=== PATIENT | male | born 1980 | race Two or more races ===

== ENCOUNTER 2023-04-20 13:53 | Inpatient (IN) | payer OTHER ==
[2023-04-20 15:03] VITALS: BMI 48.3
[2023-04-20] MEDS ORDERED: SODIUM CHLORIDE IV ONE (15:39)
[2023-04-20] MEDS ORDERED: VANCOMYCIN 1,000 MG in DEXTROSE 5%-WATER - 250 ML IVPB ONE (15:40)
[2023-04-20] MEDS ORDERED: PIPERACILLIN/TAZOB 4.5 GM 4.5 GM in DEXTROSE 5%-WATER 100 ML IVPB ONE (15:40)
[2023-04-20] MEDS ORDERED: PIPERACILLIN/TAZOB 4.5 GM 4.5 GM/100 ML BAG IVPB ONE (16:10)
[2023-04-20] MEDS ORDERED: VANCOMYCIN 1 GRAM (PRE-DOCKED) 1,000 MG/250 ML BAG IVPB ONE (16:10)
[2023-04-20 16:46] LABS: VENOUS O2 SATURATION 93.3 % (70-80); VENOUS PCO2 37.2 mmHg (38-52); VENOUS PH 7.473 (7.310-7.410)
[2023-04-20 16:48] LABS: BASO % 0.8 % (0-2.0); EOS % 2.3 % (0-4.5); HEMATOCRIT 29.8 % (35.4-49); LYMPH % 19.4 % (8-40); MCH 25.1 pg (25.7-33.7); MCHC 33.6 g/dl (32.0-35.9); MEAN CELL VOLUME 74.7 fl (80-96); MONO % 10.1 % (3.8-10.2); NEUT % 67.4 % (42.8-82.8); PLATELET COUNT 461 10^3/uL (134-434); RDW 16.4 % (11.9-15.9)
[2023-04-20 16:49] LABS: MEAN PLT VOLUME 5.8 fl (7.5-11.1)
[2023-04-20 16:58] LABS: INR 1.14 (0.83-1.09); PROTHROMBIN TIME (PATIENT) 13.2 SEC (9.7-13.0)
[2023-04-20 17:14] LABS: POTASSIUM 4.2 mmol/L (3.5-5.1)
[2023-04-20 17:16] LABS: CALCIUM 8.2 mg/dL (8.5-10.1)
[2023-04-20 17:17] LABS: ALBUMIN 2.2 g/dl (3.4-5.0); BLOOD UREA NITROGEN 9.4 mg/dL (7-18)
[2023-04-20 17:20] LABS: CREATININE 0.9 mg/dL (0.55-1.3)
[2023-04-20 17:21] LABS: TOT PROT 8.9 g/dl (6.4-8.2)
[2023-04-20 17:22] LABS: BILIRUBIN,TOTAL 0.2 mg/dL (0.2-1)
[2023-04-20 19:11] LABS: PH,URINE 6.5 (5.0-8.0); URINE APPEARANCE CLEAR; URINE BILIRUBIN NEGATIVE (NEGATIVE); URINE COLOR YELLOW; URINE GLUCOSE (UA) NEGATIVE (NEGATIVE); URINE KETONE TRACE (NEGATIVE); URINE LEUK ESTERASE NEGATIVE (NEGATIVE); URINE NITRITE NEGATIVE (NEGATIVE); URINE PROTEIN TRACE (NEGATIVE)
[2023-04-20] MEDS ORDERED: ACETAMINOPHEN 325 MG TABLET (FP) ONE (23:02)
[2023-04-20] MEDS: ACETAMINOPHEN 325 MG TABLET (FP) PO PRN (23:07)
[2023-04-20] MEDS ORDERED: chlordiazePOXIDE HCL 25 MG CAPSULE PO PRN (23:24)
[2023-04-21] MEDS ORDERED: chlordiazePOXIDE HCL 25 MG CAPSULE ONE ×2 (00:31→05:44)
[2023-04-21] MEDS: chlordiazePOXIDE HCL 25 MG CAPSULE PO SCH ×4 (00:31→17:02)
[2023-04-21 07:43] LABS: HEMATOCRIT 30.4 % (35.4-49); HEMOGLOBIN 9.6 GM/dL (11.7-16.9); MCH 24.5 pg (25.7-33.7); MCHC 31.7 g/dl (32.0-35.9); MEAN CELL VOLUME 77.3 fl (80-96); PLATELET COUNT 459 10^3/uL (134-434); RBC 3.94 M/mm3 (4.00-5.60); RDW 16.2 % (11.9-15.9); WHITE BLOOD COUNT 7.3 K/mm3 (4.0-10.0)
[2023-04-21 08:00] LABS: POTASSIUM 4.3 mmol/L (3.5-5.1)
[2023-04-21 08:02] LABS: BLOOD UREA NITROGEN 7.5 mg/dL (7-18); CALCIUM 8.1 mg/dL (8.5-10.1)
[2023-04-21 08:03] LABS: ALBUMIN 2.1 g/dl (3.4-5.0)
[2023-04-21 08:05] LABS: BILIRUBIN,DIRECT 0.1 mg/dL (0.0-0.2)
[2023-04-21 08:06] LABS: CREATININE 0.9 mg/dL (0.55-1.3)
[2023-04-21 08:07] LABS: BILIRUBIN,TOTAL 0.5 mg/dL (0.2-1); TOT PROT 8.5 g/dl (6.4-8.2)
[2023-04-21] MEDS ORDERED: ENOXAPARIN NA (PORCINE) 40 MG/0.4 ML DISP.SYRIN SQ SCH (10:00)
[2023-04-21] MEDS: ACETAMINOPHEN 325 MG TABLET (FP) PO PRN (10:45)
[2023-04-21] MEDS: DOXYCYCLINE HYCLATE 100 MG CAPSULE PO SCH ×2 (10:45→17:53)
[2023-04-21] MEDS ORDERED: LORazepam 1 MG TABLET PO PRN (14:11)
[2023-04-21] MEDS ORDERED: SODIUM CHLORIDE 1,000 ML IV SCH (14:15)
[2023-04-21] MEDS: MULTIVITAMINS (DAILY MVI) TABLET (FP) PO SCH (14:57)
[2023-04-21] MEDS: THIAMINE HCL 100 MG TABLET (FP) PO SCH (14:57)
[2023-04-21] MEDS: FOLIC ACID 1 MG TABLET (FP) PO SCH (14:57)
[2023-04-21] MEDS: VANCOMYCIN/WATER FOR INJ (PEG) 1,000 MG/200 ML BAG IVPB SCH (17:02)
[2023-04-21] MEDS: PIPERACILLIN/TAZOB 3.375 GM 3.375 GM in DEXTROSE 5%-WATER - 50 ML IVPB SCH (17:53)
[2023-04-22] MEDS: chlordiazePOXIDE HCL 25 MG CAPSULE PO SCH ×7 (00:04→22:32)
[2023-04-22] MEDS: PIPERACILLIN/TAZOB 3.375 GM 3.375 GM in DEXTROSE 5%-WATER - 50 ML IVPB SCH ×3 (02:01→17:06)
[2023-04-22] MEDS: VANCOMYCIN/WATER FOR INJ (PEG) 1,000 MG/200 ML BAG IVPB SCH ×2 (04:22→15:34)
[2023-04-22] MEDS: FOLIC ACID 1 MG TABLET (FP) PO SCH (10:22)
[2023-04-22] MEDS: THIAMINE HCL 100 MG TABLET (FP) PO SCH (10:22)
[2023-04-22] MEDS: DOXYCYCLINE HYCLATE 100 MG CAPSULE PO SCH ×2 (10:22→17:06)
[2023-04-22] MEDS: MULTIVITAMINS (DAILY MVI) TABLET (FP) PO SCH (10:22)
[2023-04-22] MEDS: PANTOPRAZOLE 40 MG TABLET PO SCH (11:07)
[2023-04-22] MEDS: HEPARIN NA (PORCINE) 5,000 UNITS/ML 1ML VIAL SQ SCH ×2 (13:48→22:32)
[2023-04-23] MEDS ORDERED: chlordiazePOXIDE HCL 10 MG CAPSULE PO PRN
[2023-04-23] MEDS: PIPERACILLIN/TAZOB 3.375 GM 3.375 GM in DEXTROSE 5%-WATER - 50 ML IVPB SCH ×3 (02:48→17:21)
[2023-04-23] MEDS: chlordiazePOXIDE HCL 10 MG CAPSULE PO SCH ×4 (05:00→23:26)
[2023-04-23] MEDS: VANCOMYCIN/WATER FOR INJ (PEG) 1,000 MG/200 ML BAG IVPB SCH ×2 (05:01→16:37)
[2023-04-23] MEDS: HEPARIN NA (PORCINE) 5,000 UNITS/ML 1ML VIAL SQ SCH ×3 (05:07→21:11)
[2023-04-23 08:51] LABS: BASO % 0.9 % (0-2.0); EOS % 4.4 % (0-4.5); HEMATOCRIT 30.5 % (35.4-49); HEMOGLOBIN 9.7 GM/dL (11.7-16.9); LYMPH % 31.5 % (8-40); MCH 24.5 pg (25.7-33.7); MEAN CELL VOLUME 76.7 fl (80-96); MONO % 9.4 % (3.8-10.2); NEUT % 53.8 % (42.8-82.8); PLATELET COUNT 489 10^3/uL (134-434); RBC 3.98 M/mm3 (4.00-5.60); WHITE BLOOD COUNT 6.6 K/mm3 (4.0-10.0)
[2023-04-23 09:03] LABS: POTASSIUM 4.2 mmol/L (3.5-5.1)
[2023-04-23 09:15] LABS: BILIRUBIN,TOTAL 0.3 mg/dL (0.2-1); TOT PROT 8.7 g/dl (6.4-8.2)
[2023-04-23 09:16] LABS: ALBUMIN 2.2 g/dl (3.4-5.0)
[2023-04-23 09:17] LABS: CALCIUM 8.3 mg/dL (8.5-10.1); CREATININE 0.9 mg/dL (0.55-1.3)
[2023-04-23] MEDS: PANTOPRAZOLE 40 MG TABLET PO SCH (10:48)
[2023-04-23] MEDS: FOLIC ACID 1 MG TABLET (FP) PO SCH (10:48)
[2023-04-23] MEDS: MULTIVITAMINS (DAILY MVI) TABLET (FP) PO SCH (10:48)
[2023-04-23] MEDS: DOXYCYCLINE HYCLATE 100 MG CAPSULE PO SCH ×2 (10:49→17:22)
[2023-04-23] MEDS: THIAMINE HCL 100 MG TABLET (FP) PO SCH (10:49)
[2023-04-24] MEDS: PIPERACILLIN/TAZOB 3.375 GM 3.375 GM in DEXTROSE 5%-WATER - 50 ML IVPB SCH ×3 (02:00→17:28)
[2023-04-24] MEDS: VANCOMYCIN/WATER FOR INJ (PEG) 1,000 MG/200 ML BAG IVPB SCH ×2 (04:00→15:32)
[2023-04-24] MEDS: chlordiazePOXIDE HCL 10 MG CAPSULE PO SCH ×2 (05:26→16:25)
[2023-04-24] MEDS: HEPARIN NA (PORCINE) 5,000 UNITS/ML 1ML VIAL SQ SCH ×3 (05:27→22:40)
[2023-04-24] MEDS: DOXYCYCLINE HYCLATE 100 MG CAPSULE PO SCH (09:39)
[2023-04-24] MEDS: FOLIC ACID 1 MG TABLET (FP) PO SCH (09:39)
[2023-04-24] MEDS: PANTOPRAZOLE 40 MG TABLET PO SCH (09:39)
[2023-04-24] MEDS: MULTIVITAMINS (DAILY MVI) TABLET (FP) PO SCH (09:39)
[2023-04-24] MEDS: THIAMINE HCL 100 MG TABLET (FP) PO SCH (09:39)
[2023-04-24 10:27] LABS: BASO % 1.1 % (0-2.0); EOS % 4.3 % (0-4.5); HEMATOCRIT 30.3 % (35.4-49); HEMOGLOBIN 9.7 GM/dL (11.7-16.9); LYMPH % 28.6 % (8-40); MCH 24.5 pg (25.7-33.7); MCHC 31.9 g/dl (32.0-35.9); MEAN CELL VOLUME 76.8 fl (80-96); PLATELET COUNT 453 10^3/uL (134-434); POTASSIUM 3.7 mmol/L (3.5-5.1); RBC 3.95 M/mm3 (4.00-5.60); RDW 16.2 % (11.9-15.9); WHITE BLOOD COUNT 7.2 K/mm3 (4.0-10.0)
[2023-04-24 10:29] LABS: ALBUMIN 2.1 g/dl (3.4-5.0); BLOOD UREA NITROGEN 9.8 mg/dL (7-18)
[2023-04-24 10:30] LABS: CALCIUM 8.6 mg/dL (8.5-10.1)
[2023-04-24 10:34] LABS: BILIRUBIN,TOTAL 0.3 mg/dL (0.2-1); TOT PROT 8.5 g/dl (6.4-8.2)
[2023-04-24] MEDS: ACETAMINOPHEN 325 MG TABLET (FP) PO PRN (15:33)
[2023-04-25] MEDS: PIPERACILLIN/TAZOB 3.375 GM 3.375 GM in DEXTROSE 5%-WATER - 50 ML IVPB SCH ×3 (01:44→17:13)
[2023-04-25] MEDS: VANCOMYCIN/WATER FOR INJ (PEG) 1,000 MG/200 ML BAG IVPB SCH ×2 (04:09→17:12)
[2023-04-25] MEDS: chlordiazePOXIDE HCL 10 MG CAPSULE PO ONE ×2 (05:46→05:49)
[2023-04-25] MEDS: ACETAMINOPHEN 325 MG TABLET (FP) PO PRN (06:03)
[2023-04-25] MEDS: HEPARIN NA (PORCINE) 5,000 UNITS/ML 1ML VIAL SQ SCH ×3 (06:56→21:20)
[2023-04-25] MEDS: FOLIC ACID 1 MG TABLET (FP) PO SCH (09:36)
[2023-04-25] MEDS: MULTIVITAMINS (DAILY MVI) TABLET (FP) PO SCH (09:36)
[2023-04-25] MEDS: THIAMINE HCL 100 MG TABLET (FP) PO SCH (09:36)
[2023-04-25] MEDS: PANTOPRAZOLE 40 MG TABLET PO SCH (09:36)
[2023-04-26] MEDS: PIPERACILLIN/TAZOB 3.375 GM 3.375 GM in DEXTROSE 5%-WATER - 50 ML IVPB SCH ×3 (02:13→17:15)
[2023-04-26] MEDS: VANCOMYCIN/WATER FOR INJ (PEG) 1,000 MG/200 ML BAG IVPB SCH ×2 (03:43→15:11)
[2023-04-26] MEDS: HEPARIN NA (PORCINE) 5,000 UNITS/ML 1ML VIAL SQ SCH ×3 (05:53→21:58)
[2023-04-26] MEDS: PANTOPRAZOLE 40 MG TABLET PO SCH (10:38)
[2023-04-26] MEDS: THIAMINE HCL 100 MG TABLET (FP) PO SCH (10:38)
[2023-04-26] MEDS: MULTIVITAMINS (DAILY MVI) TABLET (FP) PO SCH (10:38)
[2023-04-26] MEDS: FOLIC ACID 1 MG TABLET (FP) PO SCH (10:38)
[2023-04-26] MEDS: ALPRAZolam 1 MG TABLET PO PRN (21:58)
[2023-04-27] MEDS: PIPERACILLIN/TAZOB 3.375 GM 3.375 GM in DEXTROSE 5%-WATER - 50 ML IVPB SCH ×2 (02:49→11:11)
[2023-04-27] MEDS: VANCOMYCIN/WATER FOR INJ (PEG) 1,000 MG/200 ML BAG IVPB SCH (03:51)
[2023-04-27] MEDS: HEPARIN NA (PORCINE) 5,000 UNITS/ML 1ML VIAL SQ SCH ×4 (05:42→21:29)
[2023-04-27 10:38] LABS: BASO % 1.1 % (0-2.0); EOS % 3.7 % (0-4.5); HEMATOCRIT 30.6 % (35.4-49); LYMPH % 26.3 % (8-40); MCH 24.9 pg (25.7-33.7); MCHC 32.6 g/dl (32.0-35.9); MEAN CELL VOLUME 76.4 fl (80-96); MONO % 9.3 % (3.8-10.2); NEUT % 59.6 % (42.8-82.8); PLATELET COUNT 465 10^3/uL (134-434); RDW 16.4 % (11.9-15.9); WHITE BLOOD COUNT 6.7 K/mm3 (4.0-10.0)
[2023-04-27 10:40] LABS: MEAN PLT VOLUME 5.8 fl (7.5-11.1)
[2023-04-27 10:57] LABS: POTASSIUM 3.7 mmol/L (3.5-5.1)
[2023-04-27 11:02] LABS: BLOOD UREA NITROGEN 11.3 mg/dL (7-18); CALCIUM 8.6 mg/dL (8.5-10.1)
[2023-04-27 11:03] LABS: ALBUMIN 2.2 g/dl (3.4-5.0)
[2023-04-27 11:04] LABS: CREATININE 0.9 mg/dL (0.55-1.3)
[2023-04-27 11:06] LABS: BILIRUBIN,TOTAL 0.3 mg/dL (0.2-1); TOT PROT 8.6 g/dl (6.4-8.2)
[2023-04-27] MEDS: THIAMINE HCL 100 MG TABLET (FP) PO SCH (11:10)
[2023-04-27] MEDS: FOLIC ACID 1 MG TABLET (FP) PO SCH (11:11)
[2023-04-27] MEDS: MULTIVITAMINS (DAILY MVI) TABLET (FP) PO SCH (11:11)
[2023-04-27] MEDS: PANTOPRAZOLE 40 MG TABLET PO SCH (11:11)
[2023-04-27] MEDS: AMOX TR/POT CLAV 875MG/125MG TABLETS (FP) PO SCH (17:31)
[2023-04-27] MEDS: ALPRAZolam 1 MG TABLET PO PRN (21:20)
[2023-04-28] MEDS: HEPARIN NA (PORCINE) 5,000 UNITS/ML 1ML VIAL SQ SCH ×2 (05:22→14:26)
[2023-04-28] MEDS: MULTIVITAMINS (DAILY MVI) TABLET (FP) PO SCH (10:11)
[2023-04-28] MEDS: FOLIC ACID 1 MG TABLET (FP) PO SCH (10:11)
[2023-04-28] MEDS: THIAMINE HCL 100 MG TABLET (FP) PO SCH (10:11)
[2023-04-28] MEDS: AMOX TR/POT CLAV 875MG/125MG TABLETS (FP) PO SCH (10:11)
[2023-04-28] MEDS: PANTOPRAZOLE 40 MG TABLET PO SCH (10:11)
[2023-04-28 12:47] VITALS: BP 123/61; PULSE 87; RESP 18; TEMP 98.8
== END 2023-04-28 15:03 | disposition other institution (70) | DRG 720 ==
LOC: JER 13:53 → JERBED 19:12 → J7W 04-21 08:16
PROVIDERS: ADMIT Internal Medicine; ATTEND Internal Medicine
DX: A41.9 Sepsis, unspecified organism (principal); L73.2 Hidradenitis suppurativa; F10.10 Alcohol abuse, uncomplicated; L03.112 Cellulitis of left axilla; I10 Essential (primary) hypertension; E78.5 Hyperlipidemia, unspecified; F32.A Depression, unspecified; Z59.00 Homelessness unspecified; E66.01 Morbid (severe) obesity due to excess calories; Z68.42 Body mass index [BMI] 45.0-49.9, adult
CPT/HCPCS: 0241U-QW; 36415; 71045-TC-FY; 71260-TC; 74177-TC; 80048; 80053; 80076; 81003; 82550; 82553; 82803; 83605; 84484; 85025; 85027; 85610; 85651; 85730; 86140; 87040; 87070; 87081; 87086; 87186; 87205; 93005; 93010; 99291; G0480; J1644; Q9967

== ENCOUNTER 2023-04-28 14:57 | Inpatient (IN) | payer OTHER ==
[2023-04-28 15:22] VITALS: BMI 34.2
[2023-04-28] MEDS ORDERED: POLYETHYLENE GLYCOL (HEALTHYLAX) 3350 17 GM PACKET PO PRN (16:01)
[2023-04-28] MEDS ORDERED: NALOXONE HCL 0.4 MG/ML VIAL IM PRN (16:01)
[2023-04-28] MEDS ORDERED: BENZOCAINE/MENTHOL (CHLORASEPTIC ) LOZENGE MM PRN (16:01)
[2023-04-28] MEDS ORDERED: MAGNESIUM HYDROX 2400MG/30ML ORAL SUSPENSION 30 ML CUP PO PRN (16:01)
[2023-04-28] MEDS ORDERED: ACETAMINOPHEN 325 MG TABLET (FP) PO PRN (16:01)
[2023-04-28] MEDS ORDERED: hydrOXYzine PAMOATE 25 MG CAPSULE (FP) PO PRN (16:01)
[2023-04-28] MEDS ORDERED: MAG HYDROX/AL HYDROX/SIMETH 30 ML UNIT-DOSE CUP PO PRN (16:01)
[2023-04-28] MEDS ORDERED: NICOTINE POLACRILEX 2 MG GUM BUC PRN (16:01)
[2023-04-28] MEDS ORDERED: guaiFENesin 600 MG TABLET.ER (FP) PO PRN (16:01)
[2023-04-28] MEDS ORDERED: COLLOIDAL OATMEAL 1 BAR EACH TP PRN (16:01)
[2023-04-28] MEDS ORDERED: LOPERAMIDE HCL 2 MG CAPSULE PO PRN (16:01)
[2023-04-28] MEDS ORDERED: NALOXONE HCL (KLOXXADO) 8 MG SPRAY NS PRN (16:01)
[2023-04-28] MEDS ORDERED: BENZONATATE 200 MG CAPSULE PO PRN (16:01)
[2023-04-28] MEDS: PRENATAL VITAMINS W/ FOLIC ACID TABLET (FP) PO SCH (17:24)
[2023-04-28] MEDS: MELATONIN 5 MG TABLETS PO SCH (21:19)
[2023-04-28] MEDS: THIAMINE HCL 100 MG TABLET (FP) PO SCH (21:19)
[2023-04-29] MEDS: PRENATAL VITAMINS W/ FOLIC ACID TABLET (FP) PO SCH (10:45)
[2023-04-29 11:10] LABS: PH,URINE 5.5 (5.0-8.0); URINE APPEARANCE CLEAR; URINE BILIRUBIN NEGATIVE (NEGATIVE); URINE COLOR YELLOW; URINE GLUCOSE (UA) NEGATIVE (NEGATIVE); URINE KETONE NEGATIVE (NEGATIVE); URINE LEUK ESTERASE NEGATIVE (NEGATIVE); URINE NITRITE NEGATIVE (NEGATIVE); URINE PROTEIN NEGATIVE (NEGATIVE); URINE UROBILINOGEN 0.2 mg/dL (0.2-1.0)
[2023-04-29 11:20] LABS: CHLORIDE 104 mmol/L (98-107); SODIUM 138 mmol/L (136-145)
[2023-04-29 11:41] LABS: ALBUMIN 2.2 g/dl (3.4-5.0); CALCIUM 8.5 mg/dL (8.5-10.1)
[2023-04-29 11:42] LABS: ANION GAP 7 mmol/L (4-13); BLOOD UREA NITROGEN 10.1 mg/dL (7-18); CO2 27 mmol/L (21-32); GLUCOSE,RANDOM 75 mg/dL (74-106)
[2023-04-29 11:43] LABS: HEMATOCRIT 30.7 % (35.4-49); HEMOGLOBIN 9.9 GM/dL (11.7-16.9); MCH 24.7 pg (25.7-33.7); MCHC 32.4 g/dl (32.0-35.9); MEAN CELL VOLUME 76.3 fl (80-96); MEAN PLT VOLUME 6.2 fl (7.5-11.1); PLATELET COUNT 514 10^3/uL (134-434); RBC 4.02 M/mm3 (4.00-5.60); RDW 16.7 % (11.9-15.9)
[2023-04-29 11:45] LABS: SGOT/AST 15 U/L (15-37)
[2023-04-29 11:47] LABS: SGPT/ALT 18 U/L (13-61)
[2023-04-29 11:48] LABS: ALK PHOS 91 U/L (45-117); CREATININE 0.9 mg/dL (0.55-1.3); TOT PROT 8.6 g/dl (6.4-8.2)
[2023-04-29 11:49] LABS: BILIRUBIN,TOTAL 0.3 mg/dL (0.2-1)
[2023-04-29 14:06] LABS: SYPHILIS W/ RPR CONF NON-REACTIVE (NONREACTIVE)
[2023-04-29] MEDS: IBUPROFEN 600 MG TABLET (FP) PO PRN (21:12)
[2023-04-29] MEDS: MELATONIN 5 MG TABLETS PO SCH (21:12)
[2023-04-29] MEDS: THIAMINE HCL 100 MG TABLET (FP) PO SCH (21:12)
[2023-04-30] MEDS: PRENATAL VITAMINS W/ FOLIC ACID TABLET (FP) PO SCH (10:17)
[2023-04-30] MEDS ORDERED: AMOX TR/POTASSIUM CLAVULANATE 125 MG/5 ML BOTTLE 75ML PO SCH (13:45)
[2023-04-30] MEDS: AMOX TR/POT CLAV 500MG/125MG TABLETS (FP) PO SCH ×2 (15:53→21:24)
[2023-04-30] MEDS: IBUPROFEN 600 MG TABLET (FP) PO PRN (21:24)
[2023-04-30] MEDS: THIAMINE HCL 100 MG TABLET (FP) PO SCH (21:24)
[2023-04-30] MEDS: MELATONIN 5 MG TABLETS PO SCH (21:24)
[2023-05-01] MEDS: AMOX TR/POT CLAV 500MG/125MG TABLETS (FP) PO SCH ×3 (06:53→21:36)
[2023-05-01] MEDS: FERROUS SO4 325 MG TABLET (FP) PO SCH (10:58)
[2023-05-01] MEDS: PRENATAL VITAMINS W/ FOLIC ACID TABLET (FP) PO SCH (10:58)
[2023-05-01] MEDS: PANTOPRAZOLE 40 MG TABLET PO SCH (10:58)
[2023-05-01] MEDS: MELATONIN 5 MG TABLETS PO SCH (21:36)
[2023-05-01] MEDS: THIAMINE HCL 100 MG TABLET (FP) PO SCH (21:36)
[2023-05-02] MEDS: AMOX TR/POT CLAV 500MG/125MG TABLETS (FP) PO SCH ×3 (06:15→21:13)
[2023-05-02] MEDS: FERROUS SO4 325 MG TABLET (FP) PO SCH (10:18)
[2023-05-02] MEDS: PRENATAL VITAMINS W/ FOLIC ACID TABLET (FP) PO SCH (10:18)
[2023-05-02] MEDS: PANTOPRAZOLE 40 MG TABLET PO SCH (10:18)
[2023-05-02] MEDS: MELATONIN 5 MG TABLETS PO SCH (21:12)
[2023-05-02] MEDS: THIAMINE HCL 100 MG TABLET (FP) PO SCH (21:12)
[2023-05-03] MEDS: AMOX TR/POT CLAV 500MG/125MG TABLETS (FP) PO SCH ×3 (06:30→21:10)
[2023-05-03] MEDS: FERROUS SO4 325 MG TABLET (FP) PO SCH (10:42)
[2023-05-03] MEDS: PANTOPRAZOLE 40 MG TABLET PO SCH (10:42)
[2023-05-03] MEDS: PRENATAL VITAMINS W/ FOLIC ACID TABLET (FP) PO SCH (10:43)
[2023-05-03] MEDS: MELATONIN 5 MG TABLETS PO SCH (21:10)
[2023-05-03] MEDS: THIAMINE HCL 100 MG TABLET (FP) PO SCH (21:10)
[2023-05-04] MEDS: AMOX TR/POT CLAV 500MG/125MG TABLETS (FP) PO SCH ×3 (06:30→21:45)
[2023-05-04] MEDS: PRENATAL VITAMINS W/ FOLIC ACID TABLET (FP) PO SCH (10:37)
[2023-05-04] MEDS: PANTOPRAZOLE 40 MG TABLET PO SCH (10:37)
[2023-05-04] MEDS: FERROUS SO4 325 MG TABLET (FP) PO SCH (10:37)
[2023-05-04] MEDS: THIAMINE HCL 100 MG TABLET (FP) PO SCH (21:45)
[2023-05-04] MEDS: MELATONIN 5 MG TABLETS PO SCH (21:46)
[2023-05-05] MEDS: AMOX TR/POT CLAV 500MG/125MG TABLETS (FP) PO SCH ×3 (06:30→21:23)
[2023-05-05] MEDS: PRENATAL VITAMINS W/ FOLIC ACID TABLET (FP) PO SCH (10:49)
[2023-05-05] MEDS: FERROUS SO4 325 MG TABLET (FP) PO SCH (10:49)
[2023-05-05] MEDS: PANTOPRAZOLE 40 MG TABLET PO SCH (10:49)
[2023-05-05] MEDS: THIAMINE HCL 100 MG TABLET (FP) PO SCH (21:22)
[2023-05-05] MEDS: MELATONIN 5 MG TABLETS PO SCH (21:22)
[2023-05-06] MEDS: AMOX TR/POT CLAV 500MG/125MG TABLETS (FP) PO SCH ×3 (06:32→21:13)
[2023-05-06] MEDS: PRENATAL VITAMINS W/ FOLIC ACID TABLET (FP) PO SCH (10:49)
[2023-05-06] MEDS: PANTOPRAZOLE 40 MG TABLET PO SCH (10:49)
[2023-05-06] MEDS: FERROUS SO4 325 MG TABLET (FP) PO SCH (10:49)
[2023-05-06] MEDS: MELATONIN 5 MG TABLETS PO SCH (21:13)
[2023-05-06] MEDS: THIAMINE HCL 100 MG TABLET (FP) PO SCH (21:13)
[2023-05-07] MEDS: AMOX TR/POT CLAV 500MG/125MG TABLETS (FP) PO SCH ×4 (06:37→21:09)
[2023-05-07] MEDS: FERROUS SO4 325 MG TABLET (FP) PO SCH (10:18)
[2023-05-07] MEDS: PRENATAL VITAMINS W/ FOLIC ACID TABLET (FP) PO SCH (10:18)
[2023-05-07] MEDS: PANTOPRAZOLE 40 MG TABLET PO SCH (10:18)
[2023-05-07] MEDS: THIAMINE HCL 100 MG TABLET (FP) PO SCH (21:09)
[2023-05-07] MEDS: MELATONIN 5 MG TABLETS PO SCH (21:09)
[2023-05-08] MEDS: PANTOPRAZOLE 40 MG TABLET PO SCH (09:32)
[2023-05-08] MEDS: FERROUS SO4 325 MG TABLET (FP) PO SCH (09:32)
[2023-05-08] MEDS: PRENATAL VITAMINS W/ FOLIC ACID TABLET (FP) PO SCH (09:32)
[2023-05-08] MEDS: THIAMINE HCL 100 MG TABLET (FP) PO SCH (21:30)
[2023-05-08] MEDS: MELATONIN 5 MG TABLETS PO SCH (21:30)
[2023-05-09] MEDS: PANTOPRAZOLE 40 MG TABLET PO SCH (10:17)
[2023-05-09] MEDS: PRENATAL VITAMINS W/ FOLIC ACID TABLET (FP) PO SCH (10:17)
[2023-05-09] MEDS: FERROUS SO4 325 MG TABLET (FP) PO SCH (10:18)
[2023-05-09] MEDS: MELATONIN 5 MG TABLETS PO SCH (21:26)
[2023-05-09] MEDS: THIAMINE HCL 100 MG TABLET (FP) PO SCH (21:26)
[2023-05-10] MEDS: FERROUS SO4 325 MG TABLET (FP) PO SCH (10:03)
[2023-05-10] MEDS: PANTOPRAZOLE 40 MG TABLET PO SCH (10:03)
[2023-05-10] MEDS: PRENATAL VITAMINS W/ FOLIC ACID TABLET (FP) PO SCH (10:03)
[2023-05-10] MEDS: THIAMINE HCL 100 MG TABLET (FP) PO SCH (21:40)
[2023-05-10] MEDS: MELATONIN 5 MG TABLETS PO SCH (21:40)
[2023-05-11] MEDS: PANTOPRAZOLE 40 MG TABLET PO SCH (09:58)
[2023-05-11] MEDS: PRENATAL VITAMINS W/ FOLIC ACID TABLET (FP) PO SCH (09:58)
[2023-05-11] MEDS: FERROUS SO4 325 MG TABLET (FP) PO SCH (09:58)
[2023-05-11] MEDS: MELATONIN 5 MG TABLETS PO SCH (21:06)
[2023-05-11] MEDS: THIAMINE HCL 100 MG TABLET (FP) PO SCH (21:06)
[2023-05-12] MEDS: PRENATAL VITAMINS W/ FOLIC ACID TABLET (FP) PO SCH (09:46)
[2023-05-12] MEDS: FERROUS SO4 325 MG TABLET (FP) PO SCH (09:47)
[2023-05-12] MEDS: PANTOPRAZOLE 40 MG TABLET PO SCH (09:47)
[2023-05-12] MEDS: DOXYCYCLINE HYCLATE 100 MG TABLET PO SCH (18:58)
[2023-05-12] MEDS: MELATONIN 5 MG TABLETS PO SCH (21:34)
[2023-05-12] MEDS: THIAMINE HCL 100 MG TABLET (FP) PO SCH (21:34)
[2023-05-13] MEDS: FERROUS SO4 325 MG TABLET (FP) PO SCH (10:15)
[2023-05-13] MEDS: PRENATAL VITAMINS W/ FOLIC ACID TABLET (FP) PO SCH (10:15)
[2023-05-13] MEDS: DOXYCYCLINE HYCLATE 100 MG TABLET PO SCH ×2 (10:15→17:35)
[2023-05-13] MEDS: PANTOPRAZOLE 40 MG TABLET PO SCH (10:15)
[2023-05-13] MEDS: THIAMINE HCL 100 MG TABLET (FP) PO SCH (21:47)
[2023-05-13] MEDS: MELATONIN 5 MG TABLETS PO SCH (21:47)
[2023-05-13] MEDS: IBUPROFEN 600 MG TABLET (FP) PO PRN (21:48)
[2023-05-14] MEDS: DOXYCYCLINE HYCLATE 100 MG TABLET PO SCH ×2 (09:52→17:26)
[2023-05-14] MEDS: PRENATAL VITAMINS W/ FOLIC ACID TABLET (FP) PO SCH (09:52)
[2023-05-14] MEDS: PANTOPRAZOLE 40 MG TABLET PO SCH (09:52)
[2023-05-14] MEDS: FERROUS SO4 325 MG TABLET (FP) PO SCH (09:52)
[2023-05-14] MEDS: IBUPROFEN 400 MG TABLET (FP) PO PRN (21:31)
[2023-05-14] MEDS: THIAMINE HCL 100 MG TABLET (FP) PO SCH (21:31)
[2023-05-14] MEDS: MELATONIN 5 MG TABLETS PO SCH (21:31)
[2023-05-15] MEDS: DOXYCYCLINE HYCLATE 100 MG TABLET PO SCH ×2 (10:09→17:37)
[2023-05-15] MEDS: PANTOPRAZOLE 40 MG TABLET PO SCH (10:09)
[2023-05-15] MEDS: FERROUS SO4 325 MG TABLET (FP) PO SCH (10:09)
[2023-05-15] MEDS: PRENATAL VITAMINS W/ FOLIC ACID TABLET (FP) PO SCH (10:09)
[2023-05-15] MEDS: THIAMINE HCL 100 MG TABLET (FP) PO SCH (21:34)
[2023-05-15] MEDS: MELATONIN 5 MG TABLETS PO SCH (21:34)
[2023-05-15] MEDS: IBUPROFEN 400 MG TABLET (FP) PO PRN (21:35)
[2023-05-16] MEDS: PRENATAL VITAMINS W/ FOLIC ACID TABLET (FP) PO SCH (10:52)
[2023-05-16] MEDS: FERROUS SO4 325 MG TABLET (FP) PO SCH (10:53)
[2023-05-16] MEDS: PANTOPRAZOLE 40 MG TABLET PO SCH (10:53)
[2023-05-16] MEDS: DOXYCYCLINE HYCLATE 100 MG TABLET PO SCH ×2 (10:54→17:24)
[2023-05-16] MEDS: IBUPROFEN 400 MG TABLET (FP) PO PRN (21:40)
[2023-05-16] MEDS: THIAMINE HCL 100 MG TABLET (FP) PO SCH (21:40)
[2023-05-16] MEDS: MELATONIN 5 MG TABLETS PO SCH (21:40)
[2023-05-17] MEDS: PANTOPRAZOLE 40 MG TABLET PO SCH (10:28)
[2023-05-17] MEDS: PRENATAL VITAMINS W/ FOLIC ACID TABLET (FP) PO SCH (10:28)
[2023-05-17] MEDS: FERROUS SO4 325 MG TABLET (FP) PO SCH (10:29)
[2023-05-17] MEDS: DOXYCYCLINE HYCLATE 100 MG TABLET PO SCH ×2 (10:29→17:11)
[2023-05-17] MEDS: IBUPROFEN 400 MG TABLET (FP) PO PRN (21:23)
[2023-05-17] MEDS: MELATONIN 5 MG TABLETS PO SCH (21:23)
[2023-05-17] MEDS: THIAMINE HCL 100 MG TABLET (FP) PO SCH (21:23)
[2023-05-18] MEDS: PANTOPRAZOLE 40 MG TABLET PO SCH (10:02)
[2023-05-18] MEDS: PRENATAL VITAMINS W/ FOLIC ACID TABLET (FP) PO SCH (10:02)
[2023-05-18] MEDS: DOXYCYCLINE HYCLATE 100 MG TABLET PO SCH ×2 (10:02→17:25)
[2023-05-18] MEDS: FERROUS SO4 325 MG TABLET (FP) PO SCH (10:03)
[2023-05-18] MEDS: THIAMINE HCL 100 MG TABLET (FP) PO SCH (21:44)
[2023-05-18] MEDS: MELATONIN 5 MG TABLETS PO SCH (21:44)
[2023-05-18] MEDS: IBUPROFEN 600 MG TABLET (FP) PO PRN (21:44)
[2023-05-19] MEDS: PRENATAL VITAMINS W/ FOLIC ACID TABLET (FP) PO SCH (10:14)
[2023-05-19] MEDS: PANTOPRAZOLE 40 MG TABLET PO SCH (10:14)
[2023-05-19] MEDS: FERROUS SO4 325 MG TABLET (FP) PO SCH (10:14)
[2023-05-19] MEDS: DOXYCYCLINE HYCLATE 100 MG TABLET PO SCH (10:15)
[2023-05-19] MEDS: IBUPROFEN 600 MG TABLET (FP) PO PRN (21:34)
[2023-05-19] MEDS: THIAMINE HCL 100 MG TABLET (FP) PO SCH (21:34)
[2023-05-19] MEDS: MELATONIN 5 MG TABLETS PO SCH (21:34)
[2023-05-20] MEDS: PANTOPRAZOLE 40 MG TABLET PO SCH (09:56)
[2023-05-20] MEDS: PRENATAL VITAMINS W/ FOLIC ACID TABLET (FP) PO SCH (09:56)
[2023-05-20] MEDS: FERROUS SO4 325 MG TABLET (FP) PO SCH (09:56)
[2023-05-20] MEDS: MELATONIN 5 MG TABLETS PO SCH (21:20)
[2023-05-20] MEDS: THIAMINE HCL 100 MG TABLET (FP) PO SCH (21:20)
[2023-05-21] MEDS: FERROUS SO4 325 MG TABLET (FP) PO SCH (09:45)
[2023-05-21] MEDS: PANTOPRAZOLE 40 MG TABLET PO SCH (09:45)
[2023-05-21] MEDS: PRENATAL VITAMINS W/ FOLIC ACID TABLET (FP) PO SCH (09:45)
[2023-05-21] MEDS: MELATONIN 5 MG TABLETS PO SCH (21:33)
[2023-05-21] MEDS: IBUPROFEN 400 MG TABLET (FP) PO PRN (21:34)
[2023-05-21] MEDS: THIAMINE HCL 100 MG TABLET (FP) PO SCH (21:34)
[2023-05-22] MEDS: PRENATAL VITAMINS W/ FOLIC ACID TABLET (FP) PO SCH (09:53)
[2023-05-22] MEDS: FERROUS SO4 325 MG TABLET (FP) PO SCH (09:54)
[2023-05-22] MEDS: PANTOPRAZOLE 40 MG TABLET PO SCH (09:54)
[2023-05-22] MEDS: MELATONIN 5 MG TABLETS PO SCH (21:50)
[2023-05-22] MEDS: THIAMINE HCL 100 MG TABLET (FP) PO SCH (21:50)
[2023-05-23] MEDS: FERROUS SO4 325 MG TABLET (FP) PO SCH (09:44)
[2023-05-23] MEDS: PANTOPRAZOLE 40 MG TABLET PO SCH (09:44)
[2023-05-23] MEDS: PRENATAL VITAMINS W/ FOLIC ACID TABLET (FP) PO SCH (09:44)
[2023-05-23] MEDS: THIAMINE HCL 100 MG TABLET (FP) PO SCH (21:40)
[2023-05-23] MEDS: IBUPROFEN 600 MG TABLET (FP) PO PRN (21:40)
[2023-05-23] MEDS: MELATONIN 5 MG TABLETS PO SCH (21:40)
[2023-05-24] MEDS: PRENATAL VITAMINS W/ FOLIC ACID TABLET (FP) PO SCH (10:11)
[2023-05-24] MEDS: FERROUS SO4 325 MG TABLET (FP) PO SCH (10:11)
[2023-05-24] MEDS: PANTOPRAZOLE 40 MG TABLET PO SCH (10:11)
[2023-05-24] MEDS: THIAMINE HCL 100 MG TABLET (FP) PO SCH (21:33)
[2023-05-24] MEDS: MELATONIN 5 MG TABLETS PO SCH (21:33)
[2023-05-24] MEDS: IBUPROFEN 400 MG TABLET (FP) PO PRN (21:34)
[2023-05-25] MEDS: FERROUS SO4 325 MG TABLET (FP) PO SCH (09:43)
[2023-05-25] MEDS: PRENATAL VITAMINS W/ FOLIC ACID TABLET (FP) PO SCH (09:43)
[2023-05-25] MEDS: PANTOPRAZOLE 40 MG TABLET PO SCH (09:43)
[2023-05-25] MEDS: MELATONIN 5 MG TABLETS PO SCH (21:33)
[2023-05-25] MEDS: THIAMINE HCL 100 MG TABLET (FP) PO SCH (21:33)
[2023-05-26] MEDS: PRENATAL VITAMINS W/ FOLIC ACID TABLET (FP) PO SCH (09:56)
[2023-05-26] MEDS: FERROUS SO4 325 MG TABLET (FP) PO SCH (09:56)
[2023-05-26] MEDS: PANTOPRAZOLE 40 MG TABLET PO SCH (09:56)
[2023-05-26] MEDS: DOXYCYCLINE HYCLATE 100 MG TABLET PO SCH (17:17)
[2023-05-26] MEDS: THIAMINE HCL 100 MG TABLET (FP) PO SCH (21:24)
[2023-05-26] MEDS: MELATONIN 5 MG TABLETS PO SCH (21:24)
[2023-05-27] MEDS: PANTOPRAZOLE 40 MG TABLET PO SCH (09:25)
[2023-05-27] MEDS: PRENATAL VITAMINS W/ FOLIC ACID TABLET (FP) PO SCH (09:25)
[2023-05-27] MEDS: DOXYCYCLINE HYCLATE 100 MG TABLET PO SCH ×2 (09:26→17:16)
[2023-05-27] MEDS: FERROUS SO4 325 MG TABLET (FP) PO SCH (09:26)
[2023-05-27] MEDS: MELATONIN 5 MG TABLETS PO SCH (21:30)
[2023-05-27] MEDS: THIAMINE HCL 100 MG TABLET (FP) PO SCH (21:30)
[2023-05-28 07:28] VITALS: BP 124/67; PULSE 93; RESP 17; TEMP 97.7
[2023-05-28] MEDS: PRENATAL VITAMINS W/ FOLIC ACID TABLET (FP) PO SCH (09:30)
[2023-05-28] MEDS: PANTOPRAZOLE 40 MG TABLET PO SCH (09:30)
[2023-05-28] MEDS: FERROUS SO4 325 MG TABLET (FP) PO SCH (09:30)
[2023-05-28] MEDS: DOXYCYCLINE HYCLATE 100 MG TABLET PO SCH (09:30)
== END 2023-05-28 10:52 | disposition home or self-care (01) | DRG 772 ==
LOC: YASAS 14:57 → Y3W 16:25
PROVIDERS: ADMIT Allergy & Immunology; ATTEND Psychiatry & Neurology Pain Medicine
PROC: HZ42ZZZ Group Counseling for Substance Abuse Treatment, Cognitive-Behavioral (ICD-10-PCS; principal; 2023-04-28)
DX: F10.20 Alcohol dependence, uncomplicated (principal); F14.20 Cocaine dependence, uncomplicated; F17.210 Nicotine dependence, cigarettes, uncomplicated; F19.282 Other psychoactive substance dependence with psychoactive substance-induced sleep disorder; F20.9 Schizophrenia, unspecified; F43.10 Post-traumatic stress disorder, unspecified; F32.9 Major depressive disorder, single episode, unspecified; D64.9 Anemia, unspecified; L73.2 Hidradenitis suppurativa; L02.211 Cutaneous abscess of abdominal wall; Z87.11 Personal history of peptic ulcer disease
CPT/HCPCS: 36415; 80053; 80307; 81003; 85027; 86780; 86803